=== PATIENT | male | born 1955 | race Caucasian/White ===

== ENCOUNTER 2023-07-05 13:34 | Emergency (ER) | payer MEDICARE, MEDICAID ==
[~2023-07-05] VITALS: Ht 175.3 cm; Wt 81.8 kg
[2023-07-05 13:45] VITALS: BP 128/88; PULSE 73; RESP 18; O2SAT 98
[2023-07-05 15:23] VITALS: TEMP 97
== END 2023-07-05 15:26 | disposition home or self-care (01) ==
LOC: ER 13:35
DX: R23.3 Spontaneous ecchymoses (principal)
CPT/HCPCS: 99281; A6449